=== PATIENT | female | born 1985 | race Caucasian/White ===

== ENCOUNTER 2017-01-19 12:06 | Emergency (ER) | payer SELFPAY ==
[2017-01-19 12:28] VITALS: BP 130/70
--- NOTE | 2017-01-19 12:38 | Emergency Department Report ---
Entered by CANDACE IRENE, acting as scribe for ADAM ROJAS NP. Chief Complaint: Abdominal Pain Stated Complaint: LFT SIDE PX/4 WKS PREG Time Seen by Provider: 01/19/17 12:23 - HPI History of Present Illness: 31 y/o female with LLQ abdominal pain beginning this morning. Patient denies vaginal bleeding, discharge, hematuria, or dysuria. Patient states she found out recently found out she was . LMP on 12/14/2016 - ROS Review of Systems: + LLQ abdominal pain - Exam Vital Signs: Vital Signs 01/19/17 12:25 Temperature 98.6 F Pulse Rate 73 Respiratory 18 Rate Blood Pressure 130/70 O2 Sat by Pulse 100 Oximetry Physical Exam: GENERAL: The patient is a well-developed, well-nourished, in no apparent distress. Patient is alert and oriented x3. Abdomen: soft, non-tender MSE screening note: Focused history and physical exam performed. Due to findings the following was ordered: labs, us ED Disposition for MSE Condition: Stable Instructions: Abdominal Pain (ED) This documentation as recorded by the scribe,CANDACE IRENE,accurately reflects the service I personally performed and the decisions made by me,ADAM ROJAS, [employer].
[2017-01-19 13:10] LABS: Eosinophils % (Auto) 2.1 % (0.0-4.3); Hematocrit 42.3 % (30.3-42.9); Mean Corpuscular HGB Conc 33 % (30-34); Mean Corpuscular Hemoglobin 31 pg (28-32); Mean Corpuscular Volume 93 fl (79-97); Platelet Count 238 K/mm3 (140-440); Red Blood Count 4.54 M/mm3 (3.65-5.03); Red Cell Distribution Width 13.4 % (13.2-15.2); White Blood Count 8.8 K/mm3 (4.5-11.0)
[2017-01-19 13:37] LABS: Alanine Aminotransferase 23 units/L (7-56); Albumin 3.9 g/dL (3.9-5); Albumin/Globulin Ratio 1.2 %; Alkaline Phosphatase 56 units/L (35-129); Anion Gap 16 mmol/L; BUN/Creatinine Ratio 11.66; Blood Urea Nitrogen 7 mg/dL (7-17); Calcium 8.7 mg/dL (8.4-10.2); Carbon Dioxide 23 mmol/L (22-30); Chloride 105.6 mmol/L (98-107); Glucose 116 mg/dL (65-100); Potassium 3.9 mmol/L (3.6-5.0); Sodium 141 mmol/L (137-145); Total Protein 7.1 g/dL (6.3-8.2)
--- NOTE | 2017-01-19 15:19 | Ultrasound Report ---
ULTRASOUND OB LESS THAN 14 WEEKS FETUS ULTRASOUND OB TRANSVAGINAL HISTORY: Vaginal bleeding during . FINDINGS: Transabdominal and transvaginal ultrasound imaging was performed. The uterus is anteverted and measures 9 x 5 x 6 cm. No uterine mass is identified. The endometrial stripe measures 17.8 mm. The cervix is closed. No definitive intrauterine gestational sac containing a pole and yolk sac is identified. There is a small cyst in the uterine fundus measuring 3.5 mm which could represent a very early intrauterine gestational sac dated at 5 weeks, 1 days. No pole, yolk sac or heart rate is visualized at this time. The ovaries are normal size, contour and echotexture. No large adnexal cyst or mass. There is small free pelvic fluid in the cul-de-sac. IMPRESSION: Probable very early intrauterine gestational sac as outlined above. There is no evidence for pole or heart rate at this time. Close followup is recommended. Please note that an ectopic is not entirely excluded at this time.
[2017-01-19 15:47] LABS: Bilirubin,Urine NEG (Negative); Blood,Urine SM (Negative); Ketones,Urine NEG (Negative); Leukocyte Esterase,Urine NEG (Negative); Mucus,Urine 1+ /HPF; Nitrite,Urine NEG (Negative); Protein,Urine <15 mg/dL mg/dL (Negative)
== END 2017-01-19 13:00 | disposition left against medical advice (07) ==
LOC: ED 12:06
DX: O26.891 Other specified pregnancy related conditions, first trimester (principal); R10.32 Left lower quadrant pain; Z53.21 Procedure and treatment not carried out due to patient leaving prior to being seen by health care provider
CPT/HCPCS: 36415; 76801; 76817; 80053; 81001; 84702; 85025; 86900; 86901